=== PATIENT | female | born 1955 | race Caucasian/White ===

== ENCOUNTER → 2016-06-11 | Outpatient (CLI) | payer BC ==
[2016-06-11 10:26] LABS: CHLORIDE,CL 106 mmol/L (98-110); SODIUM,NA 138 mmol/L (136-146)
== END ==
LOC: MW.CHFP 09:35
PROVIDERS: ATTEND Physician Assistant
DX: M54.9 Dorsalgia, unspecified (principal); R53.83 Other fatigue
CPT/HCPCS: 36415; 80048; 81001; 84443; 85025; 87086

== ENCOUNTER → 2016-06-12 | Outpatient (CLI) | payer BC | LOC: MW.CHFP 08:54 | PROVIDERS: ATTEND Physician Assistant | DX: R53.83 Other fatigue (principal) | CPT/HCPCS: 82652 ==

== ENCOUNTER 2017-06-04 12:04 | Day surgery (SDC) | payer BC ==
[~2017-06-04 12:04] MED LIST: Betamethasone Acetate/Betamethasone Sod Phosphate 30 MG/5 ML MDV ONE; Iopamidol 408 MG/ML 50 ML SDV ONE; Lidocaine 2% 5 ML SDV ONE; Ropivacaine 0.5% 5 MG/ML 30 ML SDV ONE
--- NOTE | 2017-06-04 19:41 | OR ---
SURGEON: Madhavi Best D.O. DATE OF PROCEDURE: 06/04/2017 OR STAFF PRESENT: 1. Jaye Flores RN. 2. Maximiliano Vivar RN. 3. RT Jon. WOUND CLASSIFICATION: I. PREOPERATIVE DIAGNOSES: 1. Lumbar degenerative disk disease. 2. Lumbar radiculopathy. 3. Lumbar spinal stenosis. 4. Lumbar spondylolisthesis. 5. Chronic pain syndrome. POSTOPERATIVE DIAGNOSES: 1. Lumbar degenerative disk disease. 2. Lumbar radiculopathy. 3. Lumbar spinal stenosis. 4. Lumbar spondylolisthesis. 5. Chronic pain syndrome. PROCEDURE PERFORMED: 1. Caudal epidural steroid injection. 2. Fluoroscopic guidance for needle placement. 3. Local with oral Valium for sedation. SCREENING QUESTIONS: The patient answered "no" to all of the following questions: 1. Are you allergic to latex? 2. Do you have a bleeding disorder? 3. Do you have any current local or systemic infections? 4. Are you taking any anti-inflammatories or blood thinners? 5. Do you have any joint replacements, heart valve replacements, or a pacemaker? DESCRIPTION OF PROCEDURE: The patient had the procedure thoroughly explained including all possible risks, benefits and alternatives. Consent was signed in my clinic indicating understanding and willingness to proceed. The patient presented to [facility] and was escorted to the dressing room to disrobe and change into a hospital gown. Preoperative vital signs were taken and stable. The patient reported that Valium was taken prior to the procedure. The patient was brought back to the procedure room and placed in the prone position on the procedure room table. A pillow was placed under the hips in order to flatten the lumbar lordosis. The back was prepped with ChloraPrep and sterilely draped. All personnel in the operating room were dressed in appropriate attire including surgical scrubs, head and shoe covers. This was to ensure sterility while in the treatment room. During the time fluoroscopy was in use, all personnel in the operating room wore lead zapata with thyroid collars. Sterile technique was used throughout the procedure. The patient was awake and conversant throughout the procedure. There was no evidence of infection at the site of needle insertion. Skeletal landmarks were identified under fluoroscopy for the caudal epidural. Skin was anesthetized with 2% lidocaine with a sterile 27-gauge 1.5 inch needle. Then a 20-gauge Tuohy epidural needle was placed in the epidural space with loss of resistance technique under fluoroscopic guidance. No heme, cerebrospinal fluid, or paresthesias were noted. Isovue-200 contrast dye was injected in 0.2 cubic centimeter increments and seen to outline the epidural space in both AP and lateral views. There was no intravascular flow pattern observed under live fluoroscopy. Then 12 milligrams of Celestone and local was slowly injected after negative aspiration. The patient tolerated the procedure well. Vital signs were stable during and after the procedure. The staff escorted the patient to the recovery area and the patient was released in stable condition after a brief stay in the recovery room monitored by the nurse. The patient was given both oral and written discharge and follow up instructions with recommendation to follow up given for 2-3 weeks. The patient voiced understanding including understanding of those signs and symptoms that would require emergency care. The patient knows how to contact the office if there are any additional problems or questions in the meantime. PREOPERATIVE PAIN: 4/10. POSTOPERATIVE PAIN: 0/10. FOLLOWUP: Follow up in the Pain Clinic in 3 weeks. HYACINTH / KIAN /[id number] DELIO
== END 2017-06-04 13:35 | disposition home or self-care (01) ==
LOC: MW.SDS 12:04
PROVIDERS: ATTEND Anesthesiology
DX: G89.4 Chronic pain syndrome (principal); M48.061 Spinal stenosis, lumbar region without neurogenic claudication; M51.36 Other intervertebral disc degeneration, lumbar region; M51.16 Intervertebral disc disorders with radiculopathy, lumbar region; M47.26 Other spondylosis with radiculopathy, lumbar region; E04.9 Nontoxic goiter, unspecified; E06.3 Autoimmune thyroiditis
CPT/HCPCS: 62323; J0702; J2795; Q9966

== ENCOUNTER 2017-12-31 11:20 | Day surgery (SDC) | payer BC ==
[2017-12-31] MEDS ORDERED: Lidocaine 2% 5 ML SDV ONE (12:16)
[2017-12-31] MEDS ORDERED: Betamethasone Acetate/Betamethasone Sod Phosphate 30 MG/5 ML MDV ONE (12:16)
[2017-12-31] MEDS ORDERED: Lidocaine 1% 0 ML ONE (12:16)
[2017-12-31] MEDS ORDERED: Iopamidol 408 MG/ML 50 ML SDV ONE (12:16)
[2017-12-31] MEDS ORDERED: Ropivacaine 0.5% 5 MG/ML 30 ML SDV ONE (12:16)
--- NOTE | 2018-01-01 09:11 | OR ---
SURGEON: Madhavi Best D.O. DATE OF PROCEDURE: 12/31/2017 OPERATING ROOM STAFF PRESENT: 1. Travis Murguia, RN. 2. David Mann, RT. 3. Karen Palafox RN. 4. Karen Shelton RN. WOUND CLASSIFICATION: I. PREOPERATIVE DIAGNOSES: 1. Lumbar degenerative disk disease. 2. Lumbar spinal stenosis. 3. Lumbar radiculopathy. POSTOPERATIVE DIAGNOSES: 1. Lumbar degenerative disk disease. 2. Lumbar spinal stenosis. 3. Lumbar radiculopathy. PROCEDURES PERFORMED: 1. Caudal epidural steroid injection. 2. Fluoroscopic guidance for needle placement. 3. Local with oral Valium for sedation. SCREENING QUESTIONS: The patient answered "no" to all of the following questions: 1. Are you allergic to latex? 2. Do you have a bleeding disorder? 3. Do you have any current local or systemic infections? 4. Are you taking any anti-inflammatories or blood thinners? 5. Do you have any joint replacements, heart valve replacements, or a pacemaker? DESCRIPTION OF PROCEDURE: The patient had the procedure thoroughly explained including all possible risks, benefits and alternatives. Consent was signed in my clinic indicating understanding and willingness to proceed. The patient presented to [facility] and was escorted to the dressing room to disrobe and change into a hospital gown. Preoperative vital signs were taken and stable. The patient reported that Valium was taken prior to the procedure. The patient was brought back to the procedure room and placed in the prone position on the procedure room table. A pillow was placed under the hips in order to flatten the lumbar lordosis. The back was prepped with ChloraPrep and sterilely draped. All personnel in the operating room were dressed in appropriate attire including surgical scrubs, head and shoe covers. This was to ensure sterility while in the treatment room. During the time fluoroscopy was in use, all personnel in the operating room wore lead zapata with thyroid collars. Sterile technique was used throughout the procedure. The patient was awake and conversant throughout the procedure. There was no evidence of infection at the site of needle insertion. Skeletal landmarks were identified under fluoroscopy for the caudal epidural. Skin was anesthetized with 2% lidocaine with a sterile 27-gauge 1.5 inch needle. Then a 20-gauge Tuohy epidural needle was placed in the epidural space with loss of resistance technique under fluoroscopic guidance. No heme, cerebrospinal fluid, or paresthesias were noted. Isovue-200 contrast dye was injected in 0.2 cubic centimeter increments and seen to outline the epidural space in both AP and lateral views. There was no intravascular flow pattern observed under live fluoroscopy. Then 12 milligrams of Celestone was slowly injected after negative aspiration. The patient tolerated the procedure well. Vital signs were stable during and after the procedure. The staff escorted the patient to the recovery area and the patient was released in stable condition after a brief stay in the recovery room monitored by the nurse. The patient was given both oral and written discharge and follow up instructions with recommendation to follow up given for 2-3 weeks. The patient voiced understanding including understanding of those signs and symptoms that would require emergency care. The patient knows how to contact the office if there are any additional problems or questions in the meantime. PREOPERATIVE PAIN: 7/10. POSTOPERATIVE PAIN: 2/10. FOLLOW UP: Follow up in the pain clinic in 3 weeks. HYACINTH / KIAN /[id number] DELIO
== END 2017-12-31 13:45 | disposition home or self-care (01) ==
LOC: MW.SDS 11:20
PROVIDERS: ATTEND Anesthesiology
DX: M51.16 Intervertebral disc disorders with radiculopathy, lumbar region (principal); M48.061 Spinal stenosis, lumbar region without neurogenic claudication; M43.10 Spondylolisthesis, site unspecified; E06.3 Autoimmune thyroiditis; Z79.899 Other long term (current) drug therapy
CPT/HCPCS: 62323; J0702; J2795; Q9966

== ENCOUNTER 2018-10-14 12:03 | Day surgery (SDC) | payer BC ==
[~2018-10-14 12:03] MED LIST changes: +Iopamidol 200-M 10 ML vial ITHECAL ONE; -Iopamidol 408 MG/ML 50 ML SDV ONE
--- NOTE | 2018-10-14 19:08 | OR ---
SURGEON: Madhavi Best D.O. DATE OF PROCEDURE: 10/14/2018 Our staff present : RT Anil Ghosh RN M. Phillips, RN Preop diagnosis Chronic low back pain Left lumbar facet arthropathy L4-5 and L5-S1 Lumbar facet syndrome Postop diagnosis: Same PROCEDURES PERFORMED: 1. Left L4-L5 facet injection. 2. Left L5-S1 facet injection 3. Fluoroscopic guidance for needle placement. 4. Local with oral Valium for sedation. SCREENING QUESTIONS: The patient answered "No" to all the following questions: 1. Are you allergic to iodine, Betadine or latex? 2. Do you have a bleeding disorder? 3. Are you on anti-inflammatories or blood thinners? 4. Do you have any current local or systemic infections? MEDICAL NECESSITY: This is a patient with chronic low back pain who comes in for the above diagnostic procedure. This procedure is being performed in accordance with national guidelines written by the [employer]; please see medical necessity note in chart. DESCRIPTION OF PROCEDURE: The patient had the procedure thoroughly explained including risks, benefits and alternatives. Consent was signed in my clinic indicating understanding and willingness to proceed. The patient presented to [facility] and was escorted to the dressing room to disrobe and change into a hospital gown. Preoperative history and screening were performed by my nurse. Vital signs were taken and stable. The patient reported that Valium 10 milligrams was taken prior to the procedure. The patient was brought back to the procedure room and placed in the prone position on the procedure room table. A pillow was placed under the abdomen in order to flatten the lumbar lordosis. The back was prepped with ChloraPrep and sterilely draped. All personnel in the procedure room were dressed in appropriate attire including surgical scrubs, head and shoe covers. This was to ensure sterility while in the treatment room. During the time fluoroscopy was in use all personnel in the operating room wore lead zapata with thyroid collars. Sterile technique was used during the procedure. The fluoroscope was positioned to provide a oblique view for the left L4-5 facet joint and the injection was begun by anesthetizing the skin and soft tissues with 2 cubic centimeters of 2% Preservative-Free Lidocaine with a 25-gauge 1.5 inch needle. There were no signs of infection at the site of needle skin insertions. Using fluoroscopic guidance a sterile 22-gauge 3.5 inch spinal needle was positioned at the junction of the "ear of the Dean dog" for the L4-5 facet joint. Precise needle placement was confirmed by fluoroscopy and 0.2 cubic centimeters of IsoVue-200 contrast dye which was injected through microbore tubing under live fluoroscopy and showed no intravascular flow pattern and adequate flow over the target. Then 1 cubic centimeters of Celestone and 0.5% Ropivacaine Preservative-Free was injected slowly without complications after negative aspiration. Then the fluoroscope was positioned to provide a left oblique view for the Left L5-S1 facet joint injection. This was begun by anesthetizing the skin and soft tissues Precise needle placement was confirmed by fluoroscopy. Then 0.2 cubic centimeters of IsoVue-200 contrast dye was injected through microbore tubing under live fluoroscopy and showed no intravascular flow pattern and adequate flow over the target. After negative aspiration, 1.0 cubic centimeters of celestone and 0.5% Ropivacaine was injected without complications. The procedure was well tolerated and vital signs were stable during and after the procedure. The staff escorted the patient to the recovery area. The patient was given both oral and written discharge and followup instructions. The patient will follow up with a pain diary which will be evaluated over this evening doing things that would normally cause pain. We will evaluate the efficacy of the diagnostic lumbar medial branch blocks as the patient will follow up in the clinic the next day. The patient was given both oral and written discharge and followup instructions. The patient voiced understanding including understanding of those signs and symptoms that would require emergency care and knows how to contact the office if there are any questions or concerns in the meantime. Preoperative pain: 5-6/10, postoperative 0/10 HOGLCHR / MODL /[id number] DELIO
--- NOTE | 2018-10-14 19:16 | OR ---
SURGEON: Madhavi Best D.O. DATE OF PROCEDURE: 10/14/2018 PRIMARY SURGEON: Madhavi Best D.O. OPERATING ROOM STAFF PRESENT: 1. Sarah Wang. 2. Jaye Bal. 3. RT. Gisell WOUND CLASS: I. PREOPERATIVE DIAGNOSES: 1. Lumbar spondylosis. 2. Lumbar facet syndrome. 3. Lumbar degenerative disk disease. POSTOPERATIVE DIAGNOSIS: 1. Lumbar spondylosis. 2. Lumbar facet syndrome. 3. Lumbar degenerative disk disease. PROCEDURE PERFORMED: 1. Right L4-5 facet joint injection. 2. Right L5-S1 facet joint injection. 3. Fluoroscopic guidance for needle placement. 4. Local with oral Valium for sedation. PROCEDURES PERFORMED: 1. Right L4 medial branch block. 2. Right L5 dorsal ramus block. 3. Fluoroscopic guidance for needle placement. 4. Oral sedation. SCREENING QUESTIONS: The patient answered "No" to all the following questions: 1. Are you allergic to iodine, Betadine or latex? 2. Do you have a bleeding disorder? 3. Are you on anti-inflammatories or blood thinners? 4. Do you have any current local or systemic infections? MEDICAL NECESSITY: This is a patient with chronic low back pain who comes in for the above diagnostic procedure. This procedure is being performed in accordance with national guidelines written by the [employer]; please see medical necessity note in chart. DESCRIPTION OF PROCEDURE: The patient had the procedure thoroughly explained including risks, benefits and alternatives. Consent was signed in my clinic indicating understanding and willingness to proceed. The patient presented to [facility] [place] and was escorted to the dressing room to disrobe and change into a hospital gown. Preoperative history and screening were performed by my nurse. Vital signs were taken and stable. The patient reported that Valium 10 milligrams was taken prior to the procedure. The patient was brought back to the procedure room and placed in the prone position on the procedure room table. A pillow was placed under the abdomen in order to flatten the lumbar lordosis. The back was prepped with ChloraPrep and sterilely draped. All personnel in the procedure room were dressed in appropriate attire including surgical scrubs, head and shoe covers. This was to ensure sterility while in the treatment room. During the time fluoroscopy was in use all personnel in the operating room wore lead zapata with thyroid collars. Sterile technique was used during the procedure. Then the fluoroscope was positioned to provide a right oblique view for the right L4 medial branch. This was begun by anesthetizing the skin and soft tissues. The fluoroscope was positioned and a sterile 22-gauge 3.5 inch needle was placed at the junction of the transverse process in the superior articular process of the L5 vertebral body. Precise needle placement was confirmed by fluoroscopy. Then 0.2 cubic centimeters of IsoVue-200 contrast dye was injected through microbore tubing under live fluoroscopy and showed no intravascular flow pattern and adequate flow over the target medial branch. After negative aspiration, 0.5 cubic centimeters of 0.5% Ropivacaine was injected without complications. The fluoroscope was then positioned to provide a right L5 dorsal ramus block. This was begun by anesthetizing the skin and soft tissues over the right sacral sulcus. Then using fluoroscopic guidance, a sterile 22-gauge 3.5 inch spinal needle was positioned at the right sacral ala. Precise needle placement was confirmed by fluoroscopy in AP and oblique views, and 0.2 cubic centimeters of IsoVue-200 contrast dye was injected through microbore tubing under live fluoroscopy and showed no intravascular flow pattern and adequate flow over the target nerves. After negative aspiration, 0.5 cubic centimeters of 0.5% Ropivacaine was injected. No complications were noted. The fluoroscope was positioned then to provide a left L4 medial branch block. The skin was anesthetized. Then a 22-gauge 3.5 inch spinal needle was positioned at the junction of the transverse process in the superior articular process of the L5 vertebral body on the left. Precise needle placement was confirmed by fluoroscopy and with 0.2 cubic centimeters of IsoVue-200 contrast dye injected through microbore tubing showing no intravascular flow pattern and adequate flow over the target medial branch of L4 on the left. Then 0.5 cubic centimeters of 0.5% Ropivacaine was injected after negative aspiration without complications. Then the fluoroscope was positioned for the left L5 dorsal ramus block. This was begun by anesthetizing the skin and soft tissues. Then with fluoroscopic guidance a sterile 22-gauge 3.5 inch spinal needle was positioned at the left sacral ala. Precise needle placement was confirmed with 0.2 cubic centimeters of IsoVue-200 contrast dye injected through microbore tubing under live fluoroscopy showing no intravascular flow pattern and adequate flow over the target L5 nerve. Then 0.5 cubic centimeters of 0.5% Ropivacaine was injected after negative aspiration without complications. The procedure was well tolerated and vital signs were stable during and after the procedure. The staff escorted the patient to the recovery area. The patient was given both oral and written discharge and followup instructions. The patient will follow up with a pain diary which will be evaluated over this evening doing things that would normally cause pain. We will evaluate the efficacy of the diagnostic lumbar medial branch blocks as the patient will follow up in the clinic the next day. The patient was given both oral and written discharge and followup instructions. The patient voiced understanding including understanding of those signs and symptoms that would require emergency care and knows how to contact the office if there are any questions or concerns in the meantime. PREOPERATIVE PAIN: 08/15. POSTOPERATIVE PAIN: 04/17. FOLLOWUP: In the Pain Clinic in 3 weeks. HYACINTH / KIAN /[id number]
== END 2018-10-14 13:53 ==
LOC: MW.SDS 12:03
PROVIDERS: ATTEND Anesthesiology
DX: M47.896 Other spondylosis, lumbar region (principal); M51.36 Other intervertebral disc degeneration, lumbar region; M96.1 Postlaminectomy syndrome, not elsewhere classified; G89.29 Other chronic pain
CPT/HCPCS: 64493; 64494; J0702; J2001; J2795; Q9966